=== PATIENT | female | born 1955 | race Caucasian/White ===

== ENCOUNTER 2017-05-07 23:21 | Emergency (ER) | payer OTHER ==
[~2017-05-07] VITALS: Ht 165.1 cm; Wt 70.5 kg
[2017-05-07] MEDS ORDERED: LEVO10VL IM (23:43)
[2017-05-07] MEDS ORDERED: SIMV40TA2 PO (23:43)
[2017-05-07] MEDS ORDERED: ALEN70SO PO (23:43)
[2017-05-08] MEDS ORDERED: PRED20TA PO (00:11)
[2017-05-08] MEDS ORDERED: diphenhydrAMINE 50 MG CAP PO ONE (00:15)
[2017-05-08] MEDS ORDERED: predniSONE 20 MG TAB PO ONE (00:15)
[2017-05-08 00:27] VITALS: BP 126/81
== END 2017-05-08 00:36 | disposition home or self-care (01) ==
LOC: M ED 23:21
DX: L23.7 Allergic contact dermatitis due to plants, except food (principal)

== ENCOUNTER 2020-06-27 13:19 | Emergency (ER) | payer MEDICARE, BC ==
[~2020-06-27] VITALS: Ht 165.1 cm; Wt 77.3 kg
[2020-06-27 13:19] VITALS: BP 118/74
[~2020-06-27 13:19] MED LIST: ALEN70SO PO; LEVO10VL IM; PRED20TA PO; SIMV40TA20 PO
--- NOTE | 2020-06-27 14:11 | REP ---
INDICATION: pain after fall COMPARISON: None. TECHNIQUE: Five views left knee performed. FINDINGS: Five views of the left knee demonstrate no evidence of acute fracture, dislocation, or intrinsic bone disease. There is mild diffuse joint space narrowing in all 3 joint compartments of the knee. There is mild to moderate chondrocalcinosis in the medial and lateral joints. There is subchondral sclerosis of the patella. There is a small joint effusion. IMPRESSION: No fracture or dislocation. Degenerative changes as above. <Electronically signed by Zay Aranda > 06/27/20 [id number]
== END 2020-06-27 14:40 | disposition home or self-care (01) ==
LOC: M ED 13:19
DX: S83.412A Sprain of medial collateral ligament of left knee, initial encounter (principal); X50.9XXA Other and unspecified overexertion or strenuous movements or postures, initial encounter; Y92.018 Other place in single-family (private) house as the place of occurrence of the external cause; I10 Essential (primary) hypertension; E78.00 Pure hypercholesterolemia, unspecified; E07.9 Disorder of thyroid, unspecified; Z79.890 Hormone replacement therapy; Z88.0 Allergy status to penicillin; J30.89 Other allergic rhinitis